=== PATIENT | female | born 1965 | race Caucasian/White ===

== ENCOUNTER → 2017-10-23 | Outpatient (CLI) | payer OTHER ==
[~2017-10-23] MED LIST: PROHANCE 279.3MG/ML 15ML VIAL (A9576) As Ordered
== END ==
LOC: M RAD 09:28
DX: H90.41 Sensorineural hearing loss, unilateral, right ear, with unrestricted hearing on the contralateral side (principal)
CPT/HCPCS: A9576

== ENCOUNTER → 2017-12-18 | Outpatient (CLI) | payer OTHER ==
[~2017-12-18] MED LIST changes: +ISOVUE-370 76% 100ML VIAL (Q9967) As Ordered; -PROHANCE 279.3MG/ML 15ML VIAL (A9576) As Ordered
== END ==
LOC: M RAD 15:23
DX: J35.1 Hypertrophy of tonsils (principal); M50.30 Other cervical disc degeneration, unspecified cervical region
CPT/HCPCS: Q9967

== ENCOUNTER → 2017-12-27 | Outpatient (REF) | payer OTHER ==
[2017-12-29 00:29] LABS: Lyme Disease IgG/IgM Antibodie <0.91 ISR (0.00-0.90); Lyme Disease IgM Ab Quantitati <0.80 index (0.00-0.79)
== END ==
LOC: M LAB REF 12:21
DX: H90.41 Sensorineural hearing loss, unilateral, right ear, with unrestricted hearing on the contralateral side (principal)
CPT/HCPCS: 86617

== ENCOUNTER → 2018-01-08 | Outpatient (CLI) | payer OTHER | LOC: M ONCR 12:49 | DX: C50.912 Malignant neoplasm of unspecified site of left female breast (principal) | CPT/HCPCS: G0463 ==

== ENCOUNTER → 2018-02-11 | Outpatient (RCR) | payer OTHER ==
[2018-01-14 10:14] LABS: HEMATOCRIT 40.1 % (36.0-47.0); HEMOGLOBIN 12.9 g/dl (12.0-15.5); MEAN CORPUSCULAR HEMOGLOBIN 31.1 pg (27.0-33.0); MEAN CORPUSCULAR HGB CONC 32.2 g/dl (32.0-36.5); MEAN CORPUSCULAR VOLUME 96.6 fl (80.0-96.0); PLATELET COUNT, AUTOMATED 382 10^3/uL (150-450); RED BLOOD COUNT 4.15 10^6/uL (4.00-5.40); WHITE BLOOD COUNT 12.5 10^3/uL (4.0-10.0)
--- NOTE | 2018-01-15 13:17 | RADONC ---
RADIATION ONCOLOGY SIMULATION NOTE: DATE: 01/14/2018 CHART NUMBER: [id number] SIMULATION NOTE: Ms. Yi was seen to the CT scan for CT simulation of her left breast field. CT was accomplished without difficulty or discomfort. Radiation treatment planning is underway and radiation treatments will begin subsequently. An immobilization device was created and will be used throughout the course of treatment. It was created without difficulty or discomfort. I was physically present throughout the course of CT simulation.
--- NOTE | 2018-01-29 08:27 | RADONC ---
RADIATION ONCOLOGY PROGRESS NOTE DATE: 01/28/2018 CHART NUMBER: [id number] Ms. Yi is presently at a dose of 1067 cGy to her left breast and is tolerating treatments quite well at this point with no complaints related to her radiation therapy. She has no breast or bone pain. The patient's review of systems is noncontributory. Denies nausea, vomiting, fevers, chills, night sweats, diplopia, headaches, anxiety or depression, anorexia, weight loss, visual disturbances, chest pain, urinary or bowel difficulties, bone pain, or neurological problems. PHYSICAL EXAMINATION: The patient's skin is in good condition with no evidence of radiation change present. There is no moist or dry desquamation. The remainder of her physical exam remains unchanged. Ms. Yi is tolerating treatments quite well and radiation will continue as scheduled.
--- NOTE | 2018-02-08 13:18 | RADONC ---
RADIATION ONCOLOGY PROGRESS NOTE DATE: 02/06/2018 CHART NUMBER: [id number]. Mrs. Yi with a diagnosis of left breast cancer is currently receiving adjuvant radiotherapy and her dose thus far is 2400 cGy of an anticipated 4000 cGy. She is tolerating her therapy quite well with the exception of some minimal to moderate skin redness. She denies any nausea, vomiting, coughing, sputum production or hemoptysis. The remainder of the review of systems is noncontributory as she denies any significant neurologic problems, headache, visual disturbances, anxiety or depression. EXAMINATION FINDINGS: Minimal skin erythema without evidence of desquamation. Lymphatics: No palpable peripheral lymphadenopathy. The remainder of the physical examination is unchanged. IMPRESSION: Tolerating therapy well. PLAN: Treatments to continue. Thank you for allowing us the opportunity of participation in the management of this very sherry patient.
--- NOTE | 2018-02-13 14:27 | RADONC ---
RADIATION ONCOLOGY PROGRESS NOTE DATE: 02/11/2018 CHART NUMBER: [id number] PROGRESS NOTE: Ms. Linton is presently at a dose of 3200 cGy to her left breast and is tolerating treatments quite well at this point with no significant difficulties related to her radiation therapy other than some tenderness of the skin. REVIEW OF SYSTEMS: The patient's review of systems is noncontributory other than some skin tenderness. The patient's review of systems is noncontributory. Denies nausea, vomiting, fevers, chills, night sweats, diplopia, headaches, anxiety or depression, anorexia, weight loss, visual disturbances, chest pain, urinary or bowel difficulties, bone pain, or neurological problems. PHYSICAL EXAMINATION: The patient's skin is in good condition with no evidence of moist or dry desquamation. The remainder of her physical exam remains unchanged. Ms. Yi is tolerating treatments quite well and radiation will continue as scheduled.
== END ==
LOC: M ONCR 01-14 09:46
PROVIDERS: ATTEND Radiology Radiation Oncology
DX: C50.812 Malignant neoplasm of overlapping sites of left female breast (principal)

== ENCOUNTER 2018-02-15 15:49 | Outpatient (RCR) | payer OTHER ==
--- NOTE | 2018-02-20 08:50 | RADONC ---
RADIATION ONCOLOGY TREATMENT SUMMARY DATE: 02/20/2018 CHART NUMBER: [id number] DIAGNOSIS: Left breast cancer. STAGE: I B, T2N0 (i+) M0, grade 2, ER positive, WV positive, HER2/ana paula negative. ECOG PERFORMANCE STATUS: Zero. TREATMENT SUMMARY: Ms. 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 We treated the patient to the left breast for a total dose of 4000 cGy delivered in 15 fractions of 266.67 cGy each over 23 elapsed days from 01/24/2018 through 02/15/2018. The patient's breast was treated on the linear accelerator utilizing a 6X photon beam via 3-D conformal technique with medial lateral tangential ward. Ms. Yi tolerated her treatment quite well with no significant difficulties related to her radiation therapy. The patient is scheduled to see me again in 1 month for further followup. She will also continue to be followed by her other physicians as well. Thank you for allowing us to participate in the care of this very pleasant woman. If I could be of any further assistance or provide you with any information, please feel free to contact me anytime. As always, warm regards.
== END 2018-03-14 ==
LOC: M ONCR 15:49
PROVIDERS: ATTEND Radiology Radiation Oncology
DX: C50.812 Malignant neoplasm of overlapping sites of left female breast (principal)

== ENCOUNTER → 2018-03-27 | Outpatient (CLI) | payer OTHER ==
--- NOTE | 2018-03-30 10:18 | RADONC ---
RADIATION ONCOLOGY FOLLOWUP NOTE DATE: 03/27/2018 CHART NUMBER: [id number] DIAGNOSIS: Left breast cancer. STAGE: Stage I B, T2N0M0, Grade 2, ER and NM positive, HER2/ana paula negative. ECOG performance status 0. FOLLOWUP: Mrs. Yi returns today approximately 1 month after having completed a course of adjuvant radiotherapy for her diagnosis of left breast cancer. She is doing quite well and denies any nausea, vomiting, coughing, sputum production or hemoptysis. Her energy level is such that she is able to maintain most day-to-day activities without any alteration of her lifestyle. She did have a severe skin reaction during her radiotherapy and whatever erythema as she did experience has resolved. She also claims that her energy is returning almost back to normal. The remainder of the review of systems is essentially negative, as she denies any neurologic issues such as headaches, focal motor or neurologic deficits, anxiety or depression. Bone pain is also denied. EXAMINATION FINDINGS: The skin within the irradiated volume shows minimal hyperpigmentation without focal erythema and certainly no focal desquamation. Lymphatics: No palpable peripheral lymphadenopathy is appreciated. Lungs are clear. Heart: Regular without murmurs. Abdomen: Without evidence of hepatomegaly, masses, deep abdominal tenderness. Extremities: Without cyanosis, clubbing or edema. Neurologic: Examination grossly physiologic and nonfocal. IMPRESSION: Doing well status post completion of her adjuvant radiotherapy. She remains on tamoxifen. PLAN: We would like to see her back in 6 months. I have encouraged her to continue her routine followup visits with her referring physicians as per their directions and instructions.
== END ==
LOC: M ONCR 11:11
PROVIDERS: ATTEND Radiology Radiation Oncology
DX: Z08 Encounter for follow-up examination after completed treatment for malignant neoplasm (principal); C50.812 Malignant neoplasm of overlapping sites of left female breast; Z92.3 Personal history of irradiation; Z79.810 Long term (current) use of selective estrogen receptor modulators (SERMs)

== ENCOUNTER → 2018-09-17 | Outpatient (REF) | payer OTHER | LOC: M SFHCWAGY 09:17 | PROVIDERS: ATTEND Nurse Practitioner Family | DX: Z12.4 Encounter for screening for malignant neoplasm of cervix (principal) ==

== ENCOUNTER 2019-01-16 10:48 | Day surgery (SDC) | payer OTHER ==
[~2019-01-16] VITALS: Ht 157.5 cm; Wt 78.0 kg
[~2019-01-16 10:48] MED LIST changes: +CALC-333 PO; +D-50TAB PO; +FOLI1TAB11 PO; -ISOVUE-370 76% 100ML VIAL (Q9967) As Ordered; +LEVO100T5 PO; +LEVO88TA3 PO; +METH2.5T48 PO; +MULTCAP PO; +SULI200T PO; +TAMO20TA8 PO
[2019-01-16] MEDS ORDERED: LIDOCAINE 2% INJ 100 MG/5 ML SDV (FOR ANES.) As Ordered ONE (11:12)
[2019-01-16] MEDS ORDERED: PROPOFOL 200 MG/20 ML VIAL As Ordered ONE (11:13)
--- NOTE | 2019-01-16 12:06 | ROOR ---
Patient Name: Millicent Yi Procedure Date: 01/16/2019 11:52 AM Date of : 1965 Age: 53 Room: [facility] Gender: Female Note Status: Finalized Procedure: Colonoscopy Indications: Screening in patient at increased risk: Family history of 1st-degree relative with colorectal cancer Providers: Sergio Mcnally Jr, MD Referring MD: Nehemiah Butt MD Requesting Provider: Medicines: Propofol per Anesthesia Complications: No immediate complications. Procedure: Pre-Anesthesia Assessment: - Prior to the procedure, a History and Physical was performed, and patient medications and allergies were reviewed. The patient is competent. The risks and benefits of the procedure and the sedation options and risks were discussed with the patient. All questions were answered and informed consent was obtained. Patient identification and proposed procedure were verified by the physician and the nurse in the pre-procedure area and in the procedure room. Mental Status Examination: alert and oriented. Airway Examination: normal oropharyngeal airway and neck mobility. Respiratory Examination: clear to auscultation. CV Examination: normal. ASA Grade Assessment: II - A patient with mild systemic disease. After reviewing the risks and benefits, the patient was deemed in satisfactory condition to undergo the procedure. The anesthesia plan was to use moderate sedation / analgesia (conscious sedation). Immediately prior to administration of medications, the patient was re-assessed for adequacy to receive sedatives. The heart rate, respiratory rate, oxygen saturations, blood pressure, adequacy of pulmonary ventilation, and response to care were monitored throughout the procedure. The physical status of the patient was re-assessed after the procedure. The Colonoscope was introduced through the anus and advanced to the cecum, identified by appendiceal orifice and ileocecal valve. The colonoscopy was performed without difficulty. The patient tolerated the procedure well. The quality of the bowel preparation was adequate. Findings: The rectum, recto-sigmoid colon, sigmoid colon, descending colon, splenic flexure, transverse colon, hepatic flexure, ascending colon, cecum, appendiceal orifice and ileocecal valve appeared normal. Impression: - The rectum, recto-sigmoid colon, sigmoid colon, descending colon, splenic flexure, transverse colon, hepatic flexure, ascending colon, cecum, appendiceal orifice and ileocecal valve are normal. - No specimens collected. Recommendation: - Discharge patient to home (ambulatory). - Repeat colonoscopy in 5-10 years for screening purposes. Sergio Mcnally MD Sergio Mcnally Jr, MD 01/16/2019 12:06:08 PM Electronically signed by Sergio Mcnally Jr, MD Number of Addenda: 0 Note Initiated On: 01/16/2019 11:52 AM Estimated Blood Loss: Estimated blood loss: none.
[2019-01-16 12:30] VITALS: BP 156/85
== END 2019-01-16 12:41 | disposition home or self-care (01) ==
LOC: M OPP 10:48
PROVIDERS: ATTEND Surgery
DX: Z80.0 Family history of malignant neoplasm of digestive organs (principal); E03.9 Hypothyroidism, unspecified; L40.50 Arthropathic psoriasis, unspecified; Z85.3 Personal history of malignant neoplasm of breast; Z92.21 Personal history of antineoplastic chemotherapy; Z92.3 Personal history of irradiation; Z85.820 Personal history of malignant melanoma of skin; Z79.899 Other long term (current) drug therapy; Z87.891 Personal history of nicotine dependence

== ENCOUNTER → 2019-09-19 | Outpatient (REF) | payer OTHER | LOC: M SFHCPLAZ 09:57 | PROVIDERS: ATTEND Nurse Practitioner Family | DX: Z12.4 Encounter for screening for malignant neoplasm of cervix (principal) ==

== ENCOUNTER → 2020-04-12 | Outpatient (CLI) | payer SELFPAY | LOC: M LABSMTC 09:41 | PROVIDERS: ATTEND Pediatrics | DX: Z11.52 Encounter for screening for COVID-19 (principal) ==

== ENCOUNTER → 2020-06-01 | Outpatient (CLI) | payer OTHER ==
--- NOTE | 2020-06-01 14:51 | REP ---
INDICATION: LUNG SCREENING. COMPARISON: Comparison chest CT study February 01, 2012.. TECHNIQUE: Dose reduction was performed utilizing CARE dose with automated adjustment of the kV and MAS according to patient size; iterative reconstruction, automated exposure control, as well as adaptive dose shielding. Helical scanning is acquired and 3 mm axial images are provided at lung only windows. FINDINGS: Digital preliminary chef broiler or fry radiograph is unremarkable. There is a 3 mm nodule in the left lower lobe on page 68 of 98 in series 201 of today's study. This is visible on 2012 prior study and is unchanged. There is mild linear fibrosis in the lingula at the left lung base and the right lower lobe. No significant pulmonary nodule is appreciated. No lung mass or infiltrate is seen. No endobronchial disease is seen. IMPRESSION: Lung RADS category 1 findings. Repeat screening exam suggested in 1 year. <Electronically signed by Franck Gilbert > 06/01/20 [id number]
== END ==
LOC: M RAD 11:17
PROVIDERS: ATTEND Family Medicine
DX: Z12.2 Encounter for screening for malignant neoplasm of respiratory organs (principal); F17.211 Nicotine dependence, cigarettes, in remission; R91.1 Solitary pulmonary nodule

== ENCOUNTER → 2021-11-21 | Outpatient (CLI) | payer OTHER | LOC: M WHC 08:51 | PROVIDERS: ATTEND Internal Medicine | DX: C50.412 Malignant neoplasm of upper-outer quadrant of left female breast (principal); Z78.0 Asymptomatic menopausal state; M85.88 Other specified disorders of bone density and structure, other site; M85.851 Other specified disorders of bone density and structure, right thigh; M85.852 Other specified disorders of bone density and structure, left thigh ==

== ENCOUNTER → 2022-03-31 | Outpatient (REF) | payer OTHER | LOC: M PLALAB 09:48 | PROVIDERS: ATTEND Obstetrics & Gynecology | DX: Z01.419 Encounter for gynecological examination (general) (routine) without abnormal findings (principal); R87.610 Atypical squamous cells of undetermined significance on cytologic smear of cervix (ASC-US) | CPT/HCPCS: 87624; G0123 ==

== ENCOUNTER → 2023-05-09 | Outpatient (REF) | payer OTHER | LOC: M PLALAB 13:05 | PROVIDERS: ATTEND Obstetrics & Gynecology | DX: R87.610 Atypical squamous cells of undetermined significance on cytologic smear of cervix (ASC-US) (principal) | CPT/HCPCS: 87624; G0123 ==

== ENCOUNTER 2023-08-30 08:45 | Day surgery (SDC) | payer OTHER ==
[~2023-08-30] VITALS: Ht 160 cm; Wt 83.0 kg
[~2023-08-30 08:45] MED LIST changes: +CALC-358 PO; +LEVO112T2 PO; +MULTTAB61 PO; +SULF500T41 PO; +VITA100093 PO
[2023-08-30] MEDS: NS 1,000 ML IV ONE (08:58)
[2023-08-30 10:49] VITALS: TEMP 98.3
[2023-08-30 11:05] VITALS: BP 130/64; O2SAT 97
== END 2023-08-30 11:12 | disposition home or self-care (01) ==
LOC: M OPP 08:45
PROVIDERS: ATTEND Surgery
DX: Z12.11 Encounter for screening for malignant neoplasm of colon (principal); Z80.0 Family history of malignant neoplasm of digestive organs; E03.9 Hypothyroidism, unspecified; Z87.891 Personal history of nicotine dependence; Z79.1 Long term (current) use of non-steroidal anti-inflammatories (NSAID); Z79.631 Long term (current) use of antimetabolite agent; Z79.899 Other long term (current) drug therapy; Z79.890 Hormone replacement therapy

== ENCOUNTER → 2023-09-20 | Outpatient (CLI) | payer OTHER | LOC: M RAD 15:23 | PROVIDERS: ATTEND Family Medicine | DX: Z12.2 Encounter for screening for malignant neoplasm of respiratory organs (principal); F17.211 Nicotine dependence, cigarettes, in remission; R91.8 Other nonspecific abnormal finding of lung field ==

== ENCOUNTER → 2023-12-17 | Outpatient (CLI) | payer OTHER | LOC: M WHC 07:34 | PROVIDERS: ATTEND Obstetrics & Gynecology | DX: Z13.820 Encounter for screening for osteoporosis (principal); M85.89 Other specified disorders of bone density and structure, multiple sites ==

== ENCOUNTER → 2024-05-15 | Outpatient (REF) | payer OTHER | LOC: M PLALAB 15:38 | PROVIDERS: ATTEND Obstetrics & Gynecology | DX: Z12.72 Encounter for screening for malignant neoplasm of vagina (principal); R87.618 Other abnormal cytological findings on specimens from cervix uteri | CPT/HCPCS: 87624; G0123 ==

== ENCOUNTER → 2024-06-02 | Outpatient (REF) | payer OTHER | LOC: M LAB REF 16:52 | PROVIDERS: ATTEND Physician Assistant Medical | DX: J01.90 Acute sinusitis, unspecified (principal) ==

== ENCOUNTER → 2025-02-10 | Outpatient (REF) | payer OTHER | LOC: M LAB REF 12:30 | PROVIDERS: ATTEND Family Medicine | DX: E03.9 Hypothyroidism, unspecified (principal) ==